=== PATIENT | male | born 1950 | race Caucasian/White ===

== ENCOUNTER → 2016-06-03 | Outpatient (CLI) | payer OTHER, BC ==
--- NOTE | 2016-06-03 10:59 | DI ---
MRI UP EXTREMITY JNT W/O CN,06/03/2016 9:02 AM: Clinical History: Right shoulder pain Previous Exam: None at this facility. Findings: Multiplanar MR images are obtained through the right shoulder without contrast. Bony alignment is anatomic. There are degenerative changes of the acromioclavicular joint causing chandrika e mass effect on the underlying myotendinous junction of the supraspinatus tendon. There is some increased signal involving the distal supraspinatus tendon near its attachment on the g reater tubercle. There are some cystic changes at the greater tubercle from the attachment of the infraspinatus tendon as well most likely representing small interstitial endplate tears of the attachment of the infraspi natus. The teres minor is intact. There is some tendinosis of the subscapularis tendon. There is enlargement and edema of the long head of the biceps tendon with some fluid in the tendon sheath. The articular cartilage is preserved except for some mild marrow edema involving the posterior glenoi d which may represent a prior Bankart lesion. The glenoid labrum is not well evaluated on this exam, but there is some degenerative fraying of the anterior and the posterior glenoid labrum. This appears worse posteriorly. There is a small joint effusion. There is also some fluid within the subcoracoid bursa. Signal within the surrounding musculature is unremarkable. The major vascular flow voids are also unr emarkable. The coracoacromial and coracoclavicular ligaments are intact. Impression: 1. Focal undersurface tear of the distal supraspinatus tendon. 2. Cystic changes involving the undersurface of the infraspinatus tendon most likely representing int erstitial footplate tear is. 3. Advanced tendinitis of the long head of the biceps tendon with enlargement, edema and fluid within the tendon sheath. 4. Degenerative fraying of the glenoid labrum worse posteriorly. 5. Degenerative hypertrophy of the right acromioclavicular joint.
== END ==
LOC: MRI 08:50
PROVIDERS: ATTEND Orthopaedic Surgery
DX: M25.511 Pain in right shoulder (principal); R53.1 Weakness; S46.811A Strain of other muscles, fascia and tendons at shoulder and upper arm level, right arm, initial encounter; M19.011 Primary osteoarthritis, right shoulder
CPT/HCPCS: 73221

== ENCOUNTER → 2016-06-23 | Outpatient (CLI) | payer OTHER, BC ==
[2016-06-23 08:32] LABS: BASOPHILS # (AUTO) 0.04 10*3/UL; BASOPHILS % (AUTO) 0.5 % (0-1); EOSINOPHILS % (AUTO) 3.6 % (0-8); HEMATOCRIT 48.5 % (42.0-52.0); HEMOGLOBIN 15.8 g/dL (14.0-18.0); IMM GRAN % (AUTO) 0.1 % (0-5); IMM GRAN# (AUTO) 0.01 10*3/UL; LYMPHOCYTES # (AUTO) 1.58 10*3/uL; LYMPHOCYTES % (AUTO) 20.1 % (10-50); MEAN CORPUSCULAR HEMOGLOBIN 31.7 PG (27-31); MEAN CORPUSCULAR HGB CONC 32.6 g/dL (33-37); MEAN PLATELET VOLUME 10.2 FL (7.4-12.2); MONOCYTES # (AUTO) 0.62 10*3/UL (0.3-0.8); MONOCYTES % (AUTO) 7.9 % (5-15); NEUTROPHILS # (AUTO) 5.35 10*3/UL; NEUTROPHILS % (AUTO) 67.8 % (50-80); RDW COEFFICIENT OF VARIATION 13.8 % (11.5-14.5); RED BLOOD COUNT 4.99 10^6/uL (4.70-6.10); WHITE BLOOD COUNT 7.88 10^3/uL (4.8-10.8)
[2016-06-23 08:36] LABS: PLATELET MORPHOLOGY COMMENT NORMAL MORPHOLOGY (NORM)
[2016-06-23 08:42] LABS: ASPARTATE AMINO TRANSFERASE 32 IU/L (21-57); BILIRUBIN,TOTAL 0.8 mg/dL (0.3-1.2); BLOOD UREA NITROGEN 13 mg/dL (7-22); BUN/CREATININE RATIO 14.44 (6-20); CALCIUM 9.3 mg/dL (8.7-10.7); CHLORIDE 102 meq/L (98-112); CREATININE 0.9 mg/dL (0.70-1.50); EST GLOMERULAR FILTRATION > 60 (>60 ml/min/1.73m(2)); GLUCOSE 128 mg/dL (78-110); HDL CHOLESTEROL 35 mg/dL (40-150); SODIUM 140 meq/L (135-145); TOTAL PROTEIN 7.5 g/dL (6.1-8.0); TRIGLYCERIDES 193 mg/dL (44-200)
[2016-06-25 11:30] LABS: HEMOGLOBIN A1C 5.48 % (4.2-6.0); MEAN BLOOD GLUCOSE (CALC) 96.484 mg/dL
== END ==
LOC: LAB 08:08
PROVIDERS: ATTEND Internal Medicine
DX: E61.1 Iron deficiency (principal); I10 Essential (primary) hypertension; E78.5 Hyperlipidemia, unspecified; R73.09 Other abnormal glucose; Z12.5 Encounter for screening for malignant neoplasm of prostate
CPT/HCPCS: 36415; 80053; 80061; 83036; 85025; G0103

== ENCOUNTER → 2016-06-25 | Outpatient (CLI) | payer OTHER, BC | LOC: RT 10:45 | PROVIDERS: ATTEND Internal Medicine | DX: R05 Cough (principal); R73.09 Other abnormal glucose; R97.20 Elevated prostate specific antigen [PSA]; R35.1 Nocturia; G57.62 Lesion of plantar nerve, left lower limb; K21.9 Gastro-esophageal reflux disease without esophagitis | CPT/HCPCS: 99214 ==

== ENCOUNTER → 2016-06-25 | Outpatient (CLI) | payer OTHER, BC | LOC: MMPC 11:11 | PROVIDERS: ATTEND Internal Medicine | DX: R73.09 Other abnormal glucose (principal); R05 Cough; R97.20 Elevated prostate specific antigen [PSA]; R35.1 Nocturia; G57.62 Lesion of plantar nerve, left lower limb; K21.9 Gastro-esophageal reflux disease without esophagitis ==

== ENCOUNTER → 2016-07-10 | Outpatient (CLI) | payer OTHER, BC | LOC: MMPC 09:00 | DX: R05 Cough (principal); J20.9 Acute bronchitis, unspecified; Z87.891 Personal history of nicotine dependence | CPT/HCPCS: 94640 ×2; 99212; G0463 ==

== ENCOUNTER → 2016-07-17 | Outpatient (CLI) | payer OTHER, BC | LOC: MMPC 10:00 | PROVIDERS: ATTEND Podiatrist Foot & Ankle Surgery | DX: M79.672 Pain in left foot (principal); G57.62 Lesion of plantar nerve, left lower limb | CPT/HCPCS: 99203; G0463 ==